=== PATIENT | male | born 1995 | race Caucasian/White ===

== ENCOUNTER 2017-08-18 15:32 | Emergency (ER) ==
[2017-08-18 15:36] VITALS: BP 147/89; TEMP 101.2; BMI 43.5
--- NOTE | 2017-08-18 16:47 | CT ---
EXAM: CT of the chest without contrast. HISTORY: Cough. COMPARISON: 08/12/2000 TECHNIQUE: Contiguous axial images at 5 mm intervals obtained from the lung apices to the upper abdo men. Study was performed without contrast. Sagittal and coronal reformats were reviewed. FINDINGS: The lung windows show no lobar consolidation or effusion. There are no suspicious pulmona ry. The pulmonary fissures normal. The airways are widely patent. There is no pleural thickening. The heart size is within normal limits. There is no significant mediastinal or hilar adenopathy. Joy ited views of the upper abdomen are unremarkable. The visualized portion of the liver, spleen, pancr eas adrenal glands normal. There is a small splenule. IMPRESSION: 1. No acute pulmonary disease. 2. No cardiomegaly or mediastinal adenopathy.
[2017-08-18 16:50] LABS: BASOPHILS # (AUTO) 0.1 K/uL (0-0.2); BASOPHILS % (AUTO) 0.8 % (0.0-3.0); EOSINOPHILS % (AUTO) 0.3 % (0.0-7.0); HEMOGLOBIN 15.5 g/dl (14.0-18.0); IMMATURE GRANULOCYTE % (AUTO) 0.3 % (0.0-5.0); LYMPHOCYTES % (AUTO) 13.7 (10.0-50.0); MEAN CORPUSCULAR HEMOGLOBIN 30.8 pg (27.0-31.0); MEAN CORPUSCULAR HGB CONC 35.2 (31.8-35.4); MEAN CORPUSCULAR VOLUME 87.5 fl (80.0-94.0); NEUTROPHILS # (AUTO) 11.1 K/ul (2.0-6.9); NEUTROPHILS % (AUTO) 77.9; PLATELET COUNT 234 10^3/uL (140-440); RED BLOOD COUNT 5.03 10^6/ul (4.70-6.10); WHITE BLOOD COUNT 14.27 K/ul (4.2-10.2)
[2017-08-18 16:50] LABS: FLU INTERNAL QC INTERNAL QC VALID; RAPID FLU A NEGATIVE (NEGATIVE); RAPID FLU B NEGATIVE (NEGATIVE)
[2017-08-18 17:08] LABS: ALBUMIN/GLOBULIN RATIO 0.98; ANION GAP 14.3; BILIRUBIN,TOTAL 0.83 mg/dL (0.00-1.20); BUN/CREATININE RATIO 13.4; CALCIUM 9.9 mg/dL (8.2-10.2); CREATININE 0.97 mg/dL (0.60-1.10); POTASSIUM 3.3 mmol/L (3.5-5.1); TOTAL PROTEIN 8.1 g/dL (6.4-8.2)
[2017-08-18] MEDS ORDERED: ROCEPHIN IM STA (17:27)
[2017-08-18] MEDS ORDERED: LIDOCAINE HCL 1% SDV SUBCUT STA (17:27)
[2017-08-18] MEDS ORDERED: DECADRON 4 MG/ML SDV IM STA (17:27)
[2017-08-18] MEDS ORDERED: ZITHROMAX PO STA (17:27)
--- NOTE | 2017-08-18 17:27 | ED.PDOC ---
General ED Provider: Dr. GERTRUDIS MARTINI Chief Complaint: Respiratory Complaint Stated Complaint: cough, flu like symptoms Time Seen by Physician: 15:32 Mode of Arrival: Walk-In Information Source: Patient Exam Limitations: No limitations Primary Care Provider: CARISSA GARRETT Nursing and Triage Documentation Reviewed and Agree: Yes Respiratory Complaint Exam - Respiratory Complaint/Exam Symptoms Are: Resolved Timing: Intermittent Initial Severity: Mild Current Severity: Mild Location: Throat, Chest Character: Reports: Non-productive cough Aggravating: Reports: None Alleviating: Reports: Spontaneous resolution Associated Signs and Symptoms: Reports: Fever, Chills, Nasal congestion Related History: Reports: Similar episode History of Healthcare-Acquired Pneumonia: No Related Surgical History: Reports: None Cardiac Risk Factors: Reports: None Pseudomonas Risk Factors: Reports: None Tuberculosis Risk Factors: Reports: None Status Asthmaticus Risk Factors: Reports: None Home Oxygen Use: No Recent Stress Test: No Recent Echo/LV Function: No Current Antibiotic Use: No Current Asthma Medication Use: No Inadequate Respiratory Effort: No Dysphagia Present: No Stridor Present: No JVD Present: No Retractions: Not Present Diminished Breath Sounds: No Sinus Tenderness: None Grunting Respirations: No Kussmaul Respirations: No Differential Diagnoses: Pneumonia, Bronchitis Review of Systems - Review Of Systems Constitutional: Reports: Fever, Malaise, Weakness, Loss of appetite Eyes: Reports: No symptoms Ears, Nose, Mouth, Throat: Reports: No symptoms Respiratory: Reports: Cough, Wheezing Cardiac: Reports: No symptoms GI: Reports: No symptoms : Reports: No symptoms Musculoskeletal: Reports: No symptoms Skin: Reports: No symptoms Neurological: Reports: No symptoms Endocrine: Reports: No symptoms Hematologic/Lymphatic: Reports: No symptoms All Other Systems: Reviewed and Negative Past Medical History - Past Medical History Previously Healthy: Yes Endocrine: Reports: None Cardiovascular: Reports: None Respiratory: Reports: None Hematological: Reports: None Gastrointestinal: Reports: None Genitourinary: Reports: None Neuro/Psych: Reports: None Musculoskeletal: Reports: None Cancer: Reports: None - Surgical History General Surgical History: Reports: None - Family History Family History: Reports: None - Social History Smoking Status: Current every day smoker, Light tobacco smoker Hx Substance Use: No Alcohol Screening: Occasionally Physical Exam - Physical Exam Appearance: Well-appearing, No pain distress, Well-nourished Eyes: ERNESTO, EOMI, Conjunctiva clear ENT: Erythema, Exudate Respiratory: Airway patent, Breath sounds clear, Breath sounds equal, Respirations nonlabored Cardiovascular: RRR, Pulses normal, No rub, No murmur GI/: Soft, Nontender, No masses, Bowel sounds normal, No Organomegaly Musculoskeletal: Normal strength, ROM intact, No edema, No calf tenderness Skin: Warm, Dry, Normal color Neurological: Sensation intact, Motor intact, Reflexes intact, Cranial nerves intact, Alert, Oriented Psychiatric: Affect appropriate, Mood appropriate Critical Care Note - Critical Care Note Total Time (mins): 0 Course - Course Hematology/Chemistry: 08/18/17 16:42 08/18/17 16:42 Orders, Labs, Meds: Lab Review 08/18/17 08/18/17 08/18/17 16:23 16:42 16:42 WBC 14.27 H RBC 5.03 Hgb 15.5 Hct 44.0 MCV 87.5 MCH 30.8 MCHC 35.2 RDW Coeff of Ari 12.6 Plt Count 234 Immature Gran % (Auto) 0.3 Neut % (Auto) 77.9 Lymph % (Auto) 13.7 Wilkinson % (Auto) 7.0 Eos % (Auto) 0.3 Baso % (Auto) 0.8 Immature Gran # (Auto) 0.0 Neut # 11.1 H Lymph # 2.0 Wilkinson # 1.0 Eos # 0.0 Baso # 0.1 Sodium 138 Potassium 3.3 L Chloride 99 Carbon Dioxide 28 Anion Gap 14.3 BUN 13 Creatinine 0.97 Estimated GFR (MDRD) 95.00 BUN/Creatinine Ratio 13.40 Glucose 89 Lactic Acid Calcium 9.9 Total Bilirubin 0.83 AST 23 ALT 33 Alkaline Phosphatase 62 Total Protein 8.1 Albumin 4.0 Globulin 4.1 Albumin/Globulin Ratio 0.98 Procalcitonin Influenza A (Rapid) Negative Influenza B (Rapid) Negative 08/18/17 08/18/17 16:42 16:42 WBC RBC Hgb Hct MCV MCH MCHC RDW Coeff of Ari Plt Count Immature Gran % (Auto) Neut % (Auto) Lymph % (Auto) Wilkinson % (Auto) Eos % (Auto) Baso % (Auto) Immature Gran # (Auto) Neut # Lymph # Wilkinson # Eos # Baso # Sodium Potassium Chloride Carbon Dioxide Anion Gap BUN Creatinine Estimated GFR (MDRD) BUN/Creatinine Ratio Glucose Lactic Acid 9.0 Calcium Total Bilirubin AST ALT Alkaline Phosphatase Total Protein Albumin Globulin Albumin/Globulin Ratio Procalcitonin 0.05 Influenza A (Rapid) Influenza B (Rapid) Orders Category Date Time Status ABG DRAW REQUEST Stat CARDIO 08/18/17 16:15 Ordered ABG Stat LAB 08/18/17 16:15 Ordered BLOOD CULTURE Stat LAB 08/18/17 16:42 Received CBC W/ AUTO DIFF Stat LAB 08/18/17 16:42 Completed COMPREHENSIVE METABOLIC PANEL Stat LAB 08/18/17 16:42 Completed LACTIC ACID Stat LAB 08/18/17 16:42 Completed MOLECULAR GROUP A STREP Stat LAB 08/18/17 16:10 Results PROCALCITONIN Stat LAB 08/18/17 16:42 Completed RAPID FLU A/B Stat LAB 08/18/17 16:23 Completed STREP SCREEN Stat LAB 08/18/17 16:10 Results URINALYSIS C & S IF INDICATED Stat LAB 08/18/17 16:[address] CHEST W/O CONTRAST Stat RADS 08/18/17 16:17 Completed Vital Signs: Temp Pulse Resp BP Pulse Ox 08/18/17 15:32 101.2 F H 115 H 20 147/89 H 93 L Departure - Departure Time of Disposition: 06:15 Disposition: HOME SELF-CARE Discharge Problem: Acute viral syndrome Pharyngitis Qualifiers: Pharyngitis/tonsillitis etiology: unspecified etiology Qualified Code(s): J02.9 - Acute pharyngitis, unspecified Instructions: Pharyngitis (ED), Viral Syndrome (ED) Condition: Good Pt referred to PMD for follow-up: Yes Allergies/Adverse Reactions: Allergies No Known Allergies Allergy (Verified 08/18/17 15:36) Home Medications: Ambulatory Orders Omeprazole 20 mg PO DAILY 08/18/17
== END 2017-08-18 18:09 | disposition home or self-care (01) ==
LOC: ED 15:32
DX: B34.9 Viral infection, unspecified (principal); J02.9 Acute pharyngitis, unspecified; F17.210 Nicotine dependence, cigarettes, uncomplicated
CPT/HCPCS: 36415; 80053; 83605; 84145; 85025; 87040; 87651; 87804; 87880; 96372; 99283

== ENCOUNTER 2019-01-27 13:43 | Outpatient (CLI) ==
--- NOTE | 2019-01-27 14:07 | DI ---
EXAM: Two views of the chest. History: Left lung pneumonia Comparison: Chest radiograph 09/21/2009, chest CT 08/18/2017 Findings: Heart size is normal. No focal consolidation. No appreciable pleural fluid and no pneumo thorax. No acute osseous abnormalities. Impression: No acute cardiopulmonary process.
== END 2019-01-27 13:44 | disposition home or self-care (01) ==
LOC: RAD 13:43
PROVIDERS: ATTEND Family Medicine
DX: J18.9 Pneumonia, unspecified organism (principal)